=== PATIENT | female | born 1935 | race Asian ===

== ENCOUNTER 2016-08-19 12:10 | Outpatient (CLI) | payer MEDICARE ==
--- NOTE | 2016-08-19 13:24 | Mammography Report ---
Bilateral mammogram: Compared to 02/12/16. CAD study utilized. Findings: Scattered lingular parenchyma bilaterally. Benign calcifications. Benign axillary nodes. No mass. Impression: Benign findings. Annual followup recommended. BI-RADS CATEGORY: 2 = Benign ACR BI-RADS MAMMOGRAPHIC CODES: 0 = Needs additional imaging evaluation; 1 = Negative; 2 = Benign; 3 = Probably benign; 4 = Suspicious; 5 = Malignant; 6 = Known biopsy-proven malignancy COMMENT: 1. Dense breast tissue, i.e., adenosis, fibrocystic changes, etc., may obscure an underlying neoplasm. 2. Approximately 10% of cancers are not detected with mammography. 3. A negative mammography report should not delay biopsy if a clinically suspicious mass is present. COMMENT: Patient follow-up letters are generated in [employer].
== END 2016-08-19 12:11 | disposition home or self-care (01) ==
LOC: SPVWC 12:10
PROVIDERS: ATTEND Family Medicine
DX: Z12.31 Encounter for screening mammogram for malignant neoplasm of breast (principal); R92.2 Inconclusive mammogram
CPT/HCPCS: 77067; G0202